=== PATIENT | male | born 1985 | race American Indian/Alaskan Native ===

== ENCOUNTER 2016-11-20 21:59 | Emergency (ER) | payer MEDICAID, OTHER ==
[2016-11-20 22:00] VITALS: BMI 22.2
[2016-11-20 22:05] VITALS: PULSE 72; RESP 20; TEMP 97.3; O2SAT 98
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
[2016-11-20] MEDS ORDERED: Tmp-Smz 800 mg-160 mg DS Tab PO STA (22:22)
[2016-11-20] MEDS ORDERED: Tmp-Smz 800 mg-160 mg DS Tab ONE (22:31)
[2016-11-20 22:40] LABS: BASO # 0.1 K/uL (0.0-0.2); BASO % 0.6 % (0.0-2.0); EOS # 0.3 K/uL (0.0-0.7); EOS % 3.6 % (0.0-4.0); HEMATOCRIT 42.6 % (35.0-51.0); LYMPH # 2.7 K/uL (1.0-4.3); LYMPH % 30.7 % (20.0-40.0); MEAN CELL VOLUME 91.1 fl (80.0-94.0); MEAN CORPUSCULAR HEMOGLOBIN 30.2 pg (27.0-31.0); MEAN CORPUSCULAR HGB CONC 33.1 g/dL (33.0-37.0); MEAN PLATELET VOLUME 8.6 fl (7.2-11.7); MONO # 0.8 K/uL (0.0-0.8); MONO % 9.1 % (0.0-10.0); NRBC % 0.1 % (0.0-0.0); WHITE BLOOD COUNT 8.9 K/uL (4.8-10.8)
[2016-11-20 22:48] LABS: ALKALINE PHOSPHATASE 68 U/L (38-126); ALT/SGPT 42 U/L (21-72); AST/SGOT 46 U/L (17-59); BILIRUBIN,TOTAL 0.4 mg/dl (0.2-1.3); BLOOD UREA NITROGEN 16 mg/dl (9-20); CALCIUM 9.2 mg/dL (8.4-10.2); CARBON DIOXIDE 28 mmol/L (22-30); CHLORIDE 104 mmol/L (98-107); GFR AFRICAN-AMERICAN > 60; GLUCOSE,RANDOM 97 mg/dL (75-110); SODIUM 143 mmol/l (132-148); TOTAL PROTEIN 7.7 G/DL (6.3-8.2)
[2016-11-20 23:20] VITALS: BP 145/84
--- NOTE | 2016-11-21 09:00 | RAD ---
PROCEDURE: Left ankle HISTORY: r/o osteo. Recent traumatic event, fall. COMPARISON: None TECHNIQUE: Standard protocol for this study/examination. FINDINGS: No acute osseous or articular abnormalities. Soft tissue swelling is diffuse. IMPRESSION: Soft tissue swelling without acute articular or osseous abnormality.
== END 2016-11-20 23:19 | disposition home or self-care (01) ==
LOC: H.ER 21:59 → MERGE 21:59 → H.ER 23:19
DX: M25.572 Pain in left ankle and joints of left foot (principal); L03.90 Cellulitis, unspecified

== ENCOUNTER 2017-02-03 14:11 | Emergency (ER) | payer MEDICAID, OTHER ==
[2017-02-03 14:11] VITALS: BMI 22.2
[2017-02-03 14:25] VITALS: BP 146/76; PULSE 98; RESP 18; TEMP 98; O2SAT 100
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
--- NOTE | 2017-02-03 15:33 | RAD ---
PROCEDURE: Right Knee Radiographs. HISTORY: discomfort, swelling COMPARISON: None. FINDINGS: BONES: Bone alignment and mineralization are normal. JOINTS: Normal. JOINT EFFUSION: There is a small suprapatellar joint effusion. OTHER FINDINGS: None. IMPRESSION: No acute fracture or dislocation.
== END 2017-02-03 15:26 | disposition home or self-care (01) ==
LOC: MERGE 14:11 → H.ER 14:11
DX: M25.561 Pain in right knee (principal)

== ENCOUNTER 2017-02-14 14:29 | Emergency (ER) | payer MEDICAID ==
[2017-02-14 14:29] VITALS: BMI 22.2
[2017-02-14 14:35] VITALS: BP 150/96; PULSE 93; RESP 17; TEMP 98.7; O2SAT 97
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
== END 2017-02-14 15:58 | disposition home or self-care (01) ==
LOC: H.ER 14:29
DX: S50.811A Abrasion of right forearm, initial encounter (principal); Y93.55 Activity, bike riding

== ENCOUNTER 2017-04-30 07:19 | Emergency (ER) | payer MEDICAID, OTHER ==
[2017-04-30 07:19] VITALS: BMI 22.2
[2017-04-30 07:39] VITALS: RESP 18; TEMP 97.8; O2SAT 98
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
--- NOTE | 2017-04-30 11:52 | CT ---
PROCEDURE: CT MAXILLOFACIAL BONES WITHOUT CONTRAST HISTORY: Facial injury COMPARISON: None TECHNIQUE: Contiguous axial CT images of the maxillofacial bones were obtained. Coronal and sagittal reformats were generated. Radiation dose: Total exam DLP = 699 mGy-cm. This CT exam was performed using one or more of the following dose reduction techniques: Automated exposure control, adjustment of the mA and/or kV according to patient size, and/or use of iterative reconstruction technique. FINDINGS: NASAL BONES: There may be some mild chronic deformity of the nasal bone. No definite acute nasal bone fracture is seen. ORBITS: Orbital floors appear intact. Lamina papyracea and remainder the orbital vanessa appear intact PARANASAL SINUSES/ MASTOIDS: There is evidence of a fracture of the anterior medial aspect of the left maxilla and maxillary sinus. This is minimally depressed. Adjacent moderate anterior left facial soft tissue swelling and air are identified. Portions of the fracture line may extend medially. Mild mucosal changes are seen in the paranasal sinuses without large air-fluid level. Both ostiomeatal complexes are patent. Small Oly cells are incidentally noted. Frontal sinuses are intact as well as the sphenoid sinus. Visualized cervical spine is unremarkable. MAXILLA: Anterior left maxilla/ maxillary sinus fracture. No right maxilla fracture seen. MANDIBLE/ TEMPOROMANDIBULAR JOINTS: No fracture. No temporomandibular joint malalignment. There is evidence of left lower molar dental disease with some periapical lucency seen of the mid the posterior molars. Dental evaluation would be suggested. SKULL BASE: Unremarkable. TEMPORAL BONES: No fracture. Middle ear cavity region and mastoid air cells are well aerated. OTHER FINDINGS: Some of the soft tissue swelling appears to extend medially towards the left nasal bone region. Nasal septum is mildly deviated to the left. Small amount of soft tissue is seen in the anterior left nasal cavity which may be related to blood products but should be further correlated clinically. Posterior nasopharynx is unremarkable. IMPRESSION: Anterior left maxilla/ maxillary sinus fracture. This is noted medially with minimal depression. Moderate anterior adjacent soft tissue swelling and subcutaneous air. No appreciable orbital floor fracture lamina papyracea fracture. Please see above for other details.
[2017-04-30] MEDS ORDERED: Amoxicillin-Clav 875-125 mg Tab PO STA (12:01)
[2017-04-30] MEDS ORDERED: Amoxicillin-Clav 875-125 mg Tab PO ONE (12:14)
[2017-04-30 12:19] VITALS: BP 130/82; PULSE 66
== END 2017-04-30 12:19 | disposition home or self-care (01) ==
LOC: H.ER 07:19
DX: S02.40DA Maxillary fracture, left side, initial encounter for closed fracture (principal); W22.09XA Striking against other stationary object, initial encounter

== ENCOUNTER 2017-07-10 10:26 | Emergency (ER) | payer MEDICAID, SELFPAY ==
[2017-07-10 10:27] VITALS: BMI 22.2
[2017-07-10 10:36] VITALS: BP 145/93; PULSE 80; RESP 18; TEMP 98; O2SAT 98
--- NOTE | 2017-07-13 03:54 | ED PDOC ---
HPI: General Adult Time Seen by Provider: 07/10/17 10:40 Chief Complaint (Nursing): Upper Extremity Problem/Injury History Per: Patient Additional Complaint(s): Pt. states he slept on his R upper extremity and at 0400 he woke up with numbness and an inability to move the R wrist, R thumb and R index finger. 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 Denies pain, weakness, trauma, fever , chest pain. Past Medical History Reviewed: Historical Data, Nursing Documentation, Vital Signs Vital Signs: Last Vital Signs Temp 98 F 07/10/17 10:32 Pulse 80 07/10/17 10:32 Resp 18 07/10/17 10:32 BP 145/93 H 07/10/17 10:32 Pulse Ox 98 07/10/17 10:32 - Medical History PMH: Denies: Depression - Family History Family History: States: Unknown Family Hx - Immunization History Hx Tetanus Toxoid Vaccination: Yes (2014) Hx Influenza Vaccination: No Hx Pneumococcal Vaccination: No - Home Medications Home Medications: Ambulatory Orders Medication Instructions Recorded Amoxicillin/Clavulanate [Augmentin 1 tab PO BID #19 tab 04/30/17 875 MG-125 MG] Pseudoephedrine HCl [Sudafed 120 mg PO DAILY #10 tablet.er 04/30/17 12-Hour] - Allergies Allergies/Adverse Reactions: Allergies Allergy/AdvReac Type Severity Reaction Status Date / Time No Known Allergies Allergy Verified 04/30/17 07:35 Review of Systems ROS Statement: Except As Marked, All Systems Reviewed And Found Negative Physical Exam - Physical Exam Appears: Positive for: Well, Non-toxic, No Acute Distress Skin: Positive for: Normal Color, Warm. Negative for: Rash Pulses-Radial (L): 2+ Pulses-Radial (R): 2+ Extremity: Positive for: Capillary Refill (< 2 seconds on fingers of R hand), Other (RUE: R wrist held flexion and he is unable to extend wrist actively; unable to move R thumb and R index finger) Neurologic/Psych: Positive for: Alert, Oriented - ECG O2 Sat by Pulse Oximetry: 98 - Progress ED Course And Treament: R wrist placed in velcro thumb spica and volar splint. Informed of importance of neurology and physical therapy f/u. Pt. verbalized understanding of necessary f/u. Disposition - Clinical Impression Clinical Impression: Radial nerve palsy - Patient ED Disposition Is Patient to be Admitted: No - Disposition Referrals: [facility] [Outside] Constantino Hidalgo MD [Medical Doctor] - Disposition: Routine/Home Disposition Time: 11:30 Condition: STABLE Instructions: Radial Nerve Palsy (ED) Forms: [employer] [place] ([place]), [facility] ED School/Work Excuse
== END 2017-07-10 11:52 | disposition home or self-care (01) ==
LOC: H.ER 10:26
DX: G56.30 Lesion of radial nerve, unspecified upper limb (principal)

== ENCOUNTER 2017-08-02 20:33 | Emergency (ER) | payer MEDICAID, SELFPAY ==
[2017-08-02 20:33] VITALS: BMI 22.2
--- NOTE | 2017-08-02 21:10 | ED PDOC ---
HPI: Psych/Substance Abuse Time Seen by Provider: 08/02/17 20:57 Chief Complaint (Nursing): Substance Abuse Chief Complaint (Provider): pcp use History Per: Patient History/Exam Limitations: no limitations Additional Complaint(s): Pt. found standing on a pole so brought to the ED. Pt. states he did PCP 3 hrs ago. No other drugs or etoh. Denies falling, hurting head. No pain anywhere. No weakness, numbness, tingles, headaches, dizziness. Not suicidal or homicidal. Past Medical History Reviewed: Historical Data, Nursing Documentation, Vital Signs Vital Signs: Last Vital Signs Temp 98.3 F 08/02/17 20:34 Pulse 96 H 08/02/17 20:34 Resp 16 08/02/17 20:34 BP 166/103 H 08/02/17 20:34 Pulse Ox 97 08/02/17 20:34 - Medical History PMH: No Chronic Diseases Denies: Depression - Surgical History Surgical History: No Surg Hx - Family History Family History: States: Unknown Family Hx - Social History Alcohol: Occasional Drugs: Methamphetamine - Immunization History Hx Tetanus Toxoid Vaccination: Yes (2014) Hx Influenza Vaccination: No Hx Pneumococcal Vaccination: No - Home Medications Home Medications: Ambulatory Orders Medication Instructions Recorded Amoxicillin/Clavulanate [Augmentin 1 tab PO BID #19 tab 04/30/17 875 MG-125 MG] Pseudoephedrine HCl [Sudafed 120 mg PO DAILY #10 tablet.er 04/30/17 12-Hour] - Allergies Allergies/Adverse Reactions: Allergies Allergy/AdvReac Type Severity Reaction Status Date / Time No Known Allergies Allergy Verified 04/30/17 07:35 Review of Systems ROS Statement: Except As Marked, All Systems Reviewed And Found Negative Physical Exam - Reviewed Nursing Documentation Reviewed: Yes Vital Signs Reviewed: Yes - Physical Exam Appears: Positive for: Non-toxic, No Acute Distress Head Exam: Positive for: ATRAUMATIC, NORMAL INSPECTION, NORMOCEPHALIC Skin: Positive for: Normal Color, Warm, DRY Eye Exam: Positive for: EOMI, Normal appearance, PERRL ENT: Positive for: Normal ENT Inspection Neck: Positive for: Normal, Painless ROM Cardiovascular/Chest: Positive for: Regular Rate, Rhythm Respiratory: Positive for: CNT, Normal Breath Sounds Gastrointestinal/Abdominal: Positive for: Normal Exam, Bowel Sounds, Soft. Negative for: Tenderness Back: Positive for: Normal Inspection. Negative for: L CVA Tenderness, R CVA Tenderness Extremity: Positive for: Normal ROM. 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 Negative for: Motor/Sensory Deficits - Laboratory Results Result Diagrams: 08/02/17 23:09 08/02/17 22:10 Interpretation Of Abn Labs: pcp - ECG ECG: Positive for: Interpreted By Ri ECG Rhythm: Positive for: Sinus Rhythm, Nonspecific Changes O2 Sat by Pulse Oximetry: 97 Pulse Ox Interpretation: Normal - Progress ED Course And Treament: 2336: Stable. Pt. aggressive. Threat to self and staff. Psychosis from pcp. will sedate, restrain, and monitor. Disposition - Clinical Impression Clinical Impression: PCP (phencyclidine) abuse - Patient ED Disposition Is Patient to be Admitted: Transfer of Care - Disposition Disposition: Transfer of Care Disposition Time: 23:38 Condition: FAIR Patient Signed Over To: Dillon Mahmood
[2017-08-02 22:24] LABS: ALB/GLOB RATIO 1.3 (1.0-2.1); ALBUMIN 4.2 g/dL (3.5-5.0); ALT/SGPT 61 U/L (21-72); AST/SGOT 35 U/L (17-59); BLOOD UREA NITROGEN 15 mg/dl (9-20); CALCIUM 9.2 mg/dL (8.4-10.2); GFR AFRICAN-AMERICAN > 60; GFR NON-AFRICAN AMERICAN > 60
[2017-08-02 22:33] LABS: BARBITURATES, UR NEGATIVE (NEGATIVE); BENZODIAZEPINES, UR NEGATIVE (NEGATIVE); OPIATES, UR NEGATIVE (NEGATIVE)
[2017-08-02 22:36] LABS: PHENCYCLIDINE, UR POSITIVE (NEGATIVE)
[2017-08-02 23:06] VITALS: RESP 18; TEMP 98
[2017-08-02 23:14] LABS: BASO # 0.1 K/uL (0.0-0.2); BASO % 0.7 % (0.0-2.0); EOS # 0.1 K/uL (0.0-0.7); EOS % 1.1 % (0.0-4.0); HEMOGLOBIN 15.2 g/dL (12.0-18.0); LYMPH # 1.6 K/uL (1.0-4.3); LYMPH % 18.1 % (20.0-40.0); MEAN CELL VOLUME 92.6 fl (80.0-94.0); MEAN CORPUSCULAR HGB CONC 32.4 g/dL (33.0-37.0); MEAN PLATELET VOLUME 8.5 fl (7.2-11.7); MONO # 0.6 K/uL (0.0-0.8); MONO % 6.4 % (0.0-10.0); NEUT # 6.5 K/uL (1.8-7.0); NEUT % 73.7 % (50.0-75.0); NRBC % 0.1 % (0.0-0.0); RBC 5.06 Mil/uL (4.40-5.90); RED CELL DISTRIBUTION WIDTH 13.4 % (11.5-14.5); WHITE BLOOD COUNT 8.8 K/uL (4.8-10.8)
--- NOTE | 2017-08-03 00:28 | ED PDOC ---
- Laboratory Results Result Diagrams: 08/02/17 23:09 08/02/17 22:10 - ECG O2 Sat by Pulse Oximetry: 97 Medical Decision Making Medical Decision Makin Patient signed out to me from Dr. Rosales pending sobriety. 0615 Upon re-evaluation, patient is awake, alert, oriented x3, and walks with a steady gait. Patient is cooperative with staff and is stable for discharge home. Dx: PCP abuse Scribe Attestation: Documented by Paty Santiago acting as a scribe for Dillon Mahmood MD. Scribe Attestation: All medical record entries made by the Scribe were at my direction and personally dictated by me. I have reviewed the chart and agree that the record accurately reflects my personal performance of the history, physical exam, medical decision making, and the department course for this patient. I have also personally directed, reviewed, and agree with the discharge instructions and disposition. Disposition - Clinical Impression Clinical Impression: PCP (phencyclidine) abuse - POA Present On Arrival: None - Disposition Disposition: Routine/Home Disposition Time: 06:15 Condition: STABLE Instructions: Polysubstance Abuse (ED) Forms: [employer] (Luxem[place]ish)
[2017-08-03 07:38] VITALS: BP 148/77; PULSE 77
--- NOTE | 2017-08-03 10:45 | CARD ---
APPROVED REPORT EKG Measurement Heart [id number] <Conclusion> Normal sinus rhythm Biatrial enlargement Left ventricular hypertrophy ST elevation, consider early repolarization, pericarditis, or injury Nonspecific T wave abnormality Abnormal ECG
[2017-08-03 22:53] VITALS: O2SAT 97
== END 2017-08-03 06:45 | disposition home or self-care (01) ==
LOC: H.ER 20:33
DX: F16.10 Hallucinogen abuse, uncomplicated (principal); I51.7 Cardiomegaly
CPT/HCPCS: 80053; 80320; 80324; 80345; 80346; 80349; 80353; 80358; 80361; 83992; 84484; 85025; 93005; 96372; 99284; J2060

== ENCOUNTER 2017-08-03 13:04 | Emergency (ER) | payer MEDICAID, SELFPAY ==
[2017-08-03 13:04] VITALS: BMI 22.2
[2017-08-03 13:13] VITALS: BP 139/94; PULSE 87; RESP 18; TEMP 98.6; O2SAT 97
--- NOTE | 2017-08-03 14:00 | ED PDOC ---
Arrival/HPI - General Chief Complaint: Psychiatric Evaluation Time Seen by Provider: 08/03/17 13:28 Historian: Patient - History of Present Illness Narrative History of Present Illness (Text): 08/03/17 14:29 31-year-old male w/ no significant PMH, presents to the ER for medical clearance , is under police custody, has no complaints at this time. Patient denies any trauma, injury, fever, headache, chest pain, shortness of breath, abdominal pain , nausea, vomiting, urinary symptoms, neck pain, back pain. Past Medical History - Provider Review Nursing Documentation Reviewed: Yes - Infectious Disease Hx of Infectious Diseases: None - Tetanus Immunization Tetanus Immunization: Up to Date - Psychiatric Hx Depression: No Hx Substance Use: Yes (PCP) - Past Surgical History Past Surgical History: No Previous - Anesthesia Hx Anesthesia: No - Suicidal Assessment Feels Threatened In Home Enviroment: No Family/Social History - Physician Review Nursing Documentation Reviewed: Yes Family/Social History: Unknown Family HX Smoking Status: Smoker Currrent Status Unknown Hx Alcohol Use: Yes Hx Substance Use: Yes (PCP) Allergies/Home Meds Allergies/Adverse Reactions: Allergies No Known Allergies Allergy (Verified 08/03/17 13:09) Review of Systems - Review of Systems Constitutional: absent: Fatigue, Weight Change, Fevers Respiratory: absent: SOB, Cough, Sputum Cardiovascular: absent: Chest Pain, Palpitations, Edema Gastrointestinal: absent: Abdominal Pain, Vomiting, Appetite Changes Genitourinary Male: absent: Dysuria, Frequency, Hematuria Musculoskeletal: absent: Arthralgias, Back Pain, Neck Pain Skin: absent: Rash, Pruritis, Skin Lesions Neurological: absent: Headache, Dizziness, Focal Weakness Physical Exam - Physical Exam Narrative Physical Exam (Text): 08/03/17 14:27 GENERAL APPEARANCE: Patient is awake, alert, oriented x 3, in no acute distress. SKIN: Warm, dry; (-) cyanosis; (-) rash. HEAD: (-) scalp swelling or tenderness, (-) signs of trauma. EYES: (-) conjunctival pallor, (-) scleral icterus. ENMT: Airway patent; mucous membranes moist. NECK: (-) tenderness, (-) stiffness, (-) meningismus, (-) lymphadenopathy. CHEST AND RESPIRATORY: (-) rales, (-) rhonchi, (-) wheezes; breath sounds equal bilaterally. HEART AND CARDIOVASCULAR: (-) irregularity; (-) murmur, (-) gallop. ABDOMEN AND GI: Soft; (-) tenderness. EXTREMITIES: (-) deformity, (-) tenderness, (+) FROM, distal pulses 2+. NEURO AND PSYCH: Mental status as above. corporate affairs manager: Pupils equal and reactive; EOMI ; (-) facial asymmetry; tongue and uvula midline. Strength and DTRs symmetric. Babinski normal bilaterally. Vital Signs Temp Pulse Resp BP Pulse Ox 08/03/17 13:10 98.6 F 87 18 139/94 H 97 Medical Decision Making ED Course and Treatment: 08/03/17 14:26 31-year-old male presents to the ER for medical clearance, is under police custody, has no complaints at this time. Patient seen and evaluated by PES and was cleared for incarceration. Patient is medically cleared for incarceration after evaluation. - PA / SENIOR PHP DEVELOPER / Resident Statement MD/ has reviewed & agrees with the documentation as recorded. Disposition/Present on Arrival - Present on Arrival Any Indicators Present on Arrival: No History of DVT/PE: No History of Uncontrolled Diabetes: No Urinary Catheter: No History of Decub. Ulcer: No History Surgical Site Infection Following: None - Disposition Have Diagnosis and Disposition been Completed?: Yes Diagnosis: Medical clearance for incarceration Disposition: HOME/ ROUTINE Disposition Time: 13:59 Patient Plan: Discharge Patient Problems: Current Active Problems Problem Status Onset Medical clearance for incarceration Acute Condition: STABLE Discharge Instructions (ExitCare): Normal Exam (ED) Print Language: SCOTTISH Additional Instructions: Patient is medically and psychiatrically cleared for incarceration. Forms: [employer] (Kenyan)
== END 2017-08-03 14:33 | disposition home or self-care (01) ==
LOC: H.ER 13:04